=== PATIENT | female | born 1945 | race Caucasian/White ===

== ENCOUNTER → 2017-11-26 | Outpatient (CLI) | payer OTHER ==
[2017-11-26 10:12] LABS: Basophils # (auto) 0 uL; Basophils % (auto) 0.7 % (0.0-2.0); Eosinophils # (auto) 0.1 uL; Eosinophils % (auto) 1.1 % (0.0-7.0); Hematocrit 40.1 % (36.0-46.0); Hemoglobin 13.2 g/dL (12.2-16.2); Lymphocytes # (auto) 2.4 uL; Lymphocytes % (auto) 44.4 % (10.0-50.0); Mean Corpuscular Hemoglobin 31.3 pg (28.0-32.0); Mean Corpuscular Hgb Conc. 32.9 g/dL (32.0-36.0); Mean Corpuscular Volume 95.2 fL (80.0-100.0); Monocytes # (auto) 0.4 uL; Monocytes % (auto) 6.7 % (0.0-12.0); Neutrophils # (auto) 2.5 uL; Neutrophils % (auto) 47.1 % (37.0-80.0); Platelet Count (auto) 263 10^3/uL (140-450); Red Blood Cells 4.21 10^6/uL (4.0-5.20); Red Cell Distribution Width 13.9 % (11.8-14.3); White Blood Cell 5.4 10^3/uL (4.4-10.8)
[2017-11-26 10:41] LABS: Albumin 3.9 g/dL (3.4-5.0); BUN/Creatinine Ratio 13.6; Bilirubin, Total 0.4 mg/dL (0.2-1.0); CRP High Sensitivity 0.08 mg/dL (< 0.3); Calcium 10.3 mg/dL (8.5-10.1); Potassium 3.9 mmol/L (3.5-5.1); Total Protein 7.6 g/dL (6.4-8.2)
== END | disposition home or self-care (01) ==
LOC: LAB 09:49
PROVIDERS: ATTEND Internal Medicine
DX: I10 Essential (primary) hypertension (principal); M06.9 Rheumatoid arthritis, unspecified
CPT/HCPCS: 36415; 80053; 80061; 82306; 84439; 84443; 85025; 85652; 86141; 86200; 86431

== ENCOUNTER → 2018-03-12 | Outpatient (CLI) | payer OTHER ==
[2018-03-12 12:13] LABS: Basophils # (auto) 0 uL; Basophils % (auto) 0.8 % (0.0-2.0); Eosinophils # (auto) 0.1 uL; Eosinophils % (auto) 1.1 % (0.0-7.0); Hemoglobin 12.7 g/dL (12.2-16.2); Lymphocytes # (auto) 2.7 uL; Lymphocytes % (auto) 45.1 % (10.0-50.0); Mean Corpuscular Hemoglobin 31.8 pg (28.0-32.0); Mean Corpuscular Hgb Conc. 33.5 g/dL (32.0-36.0); Mean Corpuscular Volume 94.8 fL (80.0-100.0); Monocytes # (auto) 0.4 uL; Monocytes % (auto) 7.5 % (0.0-12.0); Neutrophils # (auto) 2.7 uL; Neutrophils % (auto) 45.5 % (37.0-80.0); Nucleated Red Blood Cells % 0.1 %; Platelet Count (auto) 267 10^3/uL (140-450); Red Blood Cells 4.01 10^6/uL (4.0-5.20); Red Cell Distribution Width 14.5 % (11.8-14.3); White Blood Cell 5.9 10^3/uL (4.4-10.8)
[2018-03-12 12:36] LABS: Albumin 4.1 g/dL (3.4-5.0); BUN/Creatinine Ratio 16.5; Bilirubin, Total 0.3 mg/dL (0.2-1.0); CRP High Sensitivity 0.09 mg/dL (< 0.3); Total Protein 7.5 g/dL (6.4-8.2)
== END | disposition home or self-care (01) ==
LOC: LAB 11:52
PROVIDERS: ATTEND Internal Medicine
DX: I10 Essential (primary) hypertension (principal); K21.9 Gastro-esophageal reflux disease without esophagitis; M06.9 Rheumatoid arthritis, unspecified
CPT/HCPCS: 36415; 80053; 83970; 85025; 85652; 86141

== ENCOUNTER → 2018-07-18 | Outpatient (CLI) | payer OTHER ==
[2018-07-18 09:29] LABS: Basophils # (auto) 0 uL; Basophils % (auto) 0.5 % (0.0-2.0); Eosinophils # (auto) 0.1 uL; Eosinophils % (auto) 1.3 % (0.0-7.0); Hemoglobin 13.1 g/dL (12.2-16.2); Lymphocytes # (auto) 2.2 uL; Lymphocytes % (auto) 42.1 % (10.0-50.0); Mean Corpuscular Hemoglobin 31.8 pg (28.0-32.0); Mean Corpuscular Hgb Conc. 32.8 g/dL (32.0-36.0); Mean Corpuscular Volume 96.8 fL (80.0-100.0); Monocytes # (auto) 0.3 uL; Neutrophils # (auto) 2.7 uL; Neutrophils % (auto) 51.1 % (37.0-80.0); Nucleated Red Blood Cells % 0.1 %; Platelet Count (auto) 234 10^3/uL (140-450); Red Blood Cells 4.14 10^6/uL (4.0-5.20); Red Cell Distribution Width 14.6 % (11.8-14.3); White Blood Cell 5.3 10^3/uL (4.4-10.8)
[2018-07-18 10:04] LABS: Calcium 9.9 mg/dL (8.5-10.1); Potassium 4.2 mmol/L (3.5-5.1)
[2018-07-18 10:08] LABS: BUN/Creatinine Ratio 18.2; Bilirubin, Total 0.5 mg/dL (0.2-1.0); CRP High Sensitivity 0.15 mg/dL (< 0.3); Total Protein 7.9 g/dL (6.4-8.2)
== END | disposition home or self-care (01) ==
LOC: LAB 09:13
PROVIDERS: ATTEND Internal Medicine
DX: E55.9 Vitamin D deficiency, unspecified (principal); M06.09 Rheumatoid arthritis without rheumatoid factor, multiple sites; I10 Essential (primary) hypertension
CPT/HCPCS: 36415; 80053; 82306; 85025; 86141

== ENCOUNTER → 2018-12-26 | Outpatient (CLI) | payer OTHER ==
[2018-12-26 10:31] LABS: Basophils # (auto) 0.1 uL; Eosinophils # (auto) 0.3 uL; Hematocrit 39.8 % (36.0-46.0); Hemoglobin 13.3 g/dL (12.2-16.2); Lymphocytes # (auto) 2.3 uL; Lymphocytes % (auto) 41.5 % (10.0-50.0); Mean Corpuscular Hemoglobin 31.7 pg (28.0-32.0); Mean Corpuscular Hgb Conc. 33.3 g/dL (32.0-36.0); Mean Corpuscular Volume 95.1 fL (80.0-100.0); Monocytes # (auto) 0.3 uL; Neutrophils # (auto) 2.5 uL; Neutrophils % (auto) 45.5 % (37.0-80.0); Nucleated Red Blood Cells % 0.1 %; Platelet Count (auto) 259 10^3/uL (140-450); Red Blood Cells 4.19 10^6/uL (4.0-5.20); Red Cell Distribution Width 14.7 % (11.8-14.3); White Blood Cell 5.5 10^3/uL (4.4-10.8)
[2018-12-26 10:55] LABS: Potassium 4.1 mmol/L (3.5-5.1)
[2018-12-26 11:05] LABS: Albumin 4.1 g/dL (3.4-5.0); BUN/Creatinine Ratio 15.9; Bilirubin, Total 0.4 mg/dL (0.2-1.0); CRP High Sensitivity 0.11 mg/dL (< 0.3); Calcium 10.7 mg/dL (8.5-10.1); Phosphorus 2.7 mg/dL (2.5-4.90); Total Protein 7.7 g/dL (6.4-8.2)
[2018-12-26 11:54] LABS: Urine Bacteria NONE SEEN /hpf (None Seen); Urine Blood Negative /uL (Negative); Urine Specific Gravity 1.016 (1.001-1.035); Urine WBC 1 /hpf (0 - 5)
== END | disposition home or self-care (01) ==
LOC: LAB 09:56
PROVIDERS: ATTEND Internal Medicine
DX: M06.9 Rheumatoid arthritis, unspecified (principal); E21.3 Hyperparathyroidism, unspecified
CPT/HCPCS: 36415; 80053; 80061; 81001; 82306; 83970; 84100; 84439; 84443; 85025; 85652; 86141; 86200; 86431

== ENCOUNTER → 2019-11-13 | Outpatient (CLI) | payer OTHER ==
[2019-11-13 10:09] LABS: Basophils # (auto) 0 uL; Basophils % (auto) 0.7 % (0.0-2.0); Eosinophils # (auto) 0.1 uL; Eosinophils % (auto) 1.9 % (0.0-7.0); Hematocrit 39.1 % (36.0-46.0); Lymphocytes # (auto) 2.3 uL; Mean Corpuscular Hemoglobin 31.8 pg (28.0-32.0); Mean Corpuscular Hgb Conc. 33.3 g/dL (32.0-36.0); Mean Corpuscular Volume 95.4 fL (80.0-100.0); Monocytes # (auto) 0.4 uL; Neutrophils # (auto) 2.5 uL; Neutrophils % (auto) 47.4 % (37.0-80.0); Platelet Count (auto) 251 10^3/uL (140-450); Red Blood Cells 4.09 10^6/uL (4.0-5.20); Red Cell Distribution Width 13.8 % (11.8-14.3); White Blood Cell 5.3 10^3/uL (4.4-10.8)
[2019-11-13 10:16] LABS: Urine Bacteria NONE SEEN /hpf (None Seen); Urine Blood Negative /uL (Negative); Urine Specific Gravity 1.016 (1.001-1.035); Urine WBC 3 /hpf (0 - 5)
[2019-11-13 10:41] LABS: Potassium 4.2 mmol/L (3.5-5.1)
[2019-11-13 10:50] LABS: Albumin 3.8 g/dL (3.4-5.0); BUN/Creatinine Ratio 18.8; Bilirubin, Total 0.5 mg/dL (0.2-1.0); Calcium 10.3 mg/dL (8.5-10.1); Total Protein 7.9 g/dL (6.4-8.2)
[2019-11-13 10:51] LABS: Free T4 (Free Thyroxine) 1.35 ng/dL (0.89-1.76)
[2019-11-13 10:52] LABS: Folate (Folic Acid) 14.04 ng/mL (5.38-24)
[2019-11-16 09:51] LABS: Hepatitis B Surface Antibody Positive
[2019-11-16 10:21] LABS: Hepatitis A Total Antibody Negative
[2019-11-16 11:42] LABS: Hepatitis C Antibody Negative (Negative)
[2019-11-16 11:43] LABS: Hepatitis B Core Total AB Negative; Hepatitis B Surface Antigen Negative (Negative)
== END | disposition home or self-care (01) ==
LOC: LAB 09:30
PROVIDERS: ATTEND Internal Medicine
DX: E21.3 Hyperparathyroidism, unspecified (principal); E78.5 Hyperlipidemia, unspecified; I10 Essential (primary) hypertension; K60.0 Acute anal fissure
CPT/HCPCS: 36415; 80053; 80061; 81001; 82607; 82746; 83036; 84439; 84443; 85025; 85652; 86431; 86704; 86706; 86708; 86803; 87340

== ENCOUNTER → 2020-04-28 | Outpatient (CLI) | payer OTHER ==
[2020-04-28 07:49] LABS: Basophils # (auto) 0 10 ^3/uL (0-0.2); Basophils % (auto) 0.6 % (0.0-2.0); Eosinophils # (auto) 0.1 10 ^3/uL (0-0.8); Eosinophils % (auto) 2.3 % (0.0-7.0); Hematocrit 39.6 % (36.0-46.0); Hemoglobin 12.7 g/dL (12.2-16.2); Lymphocytes # (auto) 2.6 10 ^3/uL (0.4-5.4); Lymphocytes % (auto) 43.7 % (10.0-50.0); Mean Corpuscular Hemoglobin 30.8 pg (28.0-32.0); Mean Corpuscular Hgb Conc. 32.1 g/dL (32.0-36.0); Monocytes # (auto) 0.4 10 ^3/uL (0-1.3); Monocytes % (auto) 7.2 % (0.0-12.0); Neutrophils # (auto) 2.7 10 ^3/uL (1.6-8.6); Neutrophils % (auto) 46.2 % (37.0-80.0); Platelet Count (auto) 248 10^3/uL (140-450); Red Blood Cells 4.12 10^6/uL (4.0-5.20); Red Cell Distribution Width 14.4 % (11.8-14.3); White Blood Cell 5.8 10^3/uL (4.4-10.8)
[2020-04-28 08:14] LABS: Calcium 10.4 mg/dL (8.5-10.1); Potassium 4.3 mmol/L (3.5-5.1)
[2020-04-28 08:17] LABS: BUN/Creatinine Ratio 21.2; Bilirubin, Total 0.3 mg/dL (0.2-1.0); CRP High Sensitivity 0.22 mg/dL (< 0.3); Total Protein 7.6 g/dL (6.4-8.2)
== END | disposition home or self-care (01) ==
LOC: LAB 07:34
PROVIDERS: ATTEND Internal Medicine Rheumatology
DX: M05.29 Rheumatoid vasculitis with rheumatoid arthritis of multiple sites (principal)
CPT/HCPCS: 36415; 80053; 85025; 85652; 86141; 86812

== ENCOUNTER → 2020-06-30 | Outpatient (CLI) | payer OTHER ==
[2020-06-30 10:26] LABS: Basophils # (auto) 0 10 ^3/uL (0-0.2); Basophils % (auto) 0.3 % (0.0-2.0); Eosinophils # (auto) 0.2 10 ^3/uL (0-0.8); Eosinophils % (auto) 3.4 % (0.0-7.0); Hemoglobin 12.2 g/dL (12.2-16.2); Lymphocytes # (auto) 2.2 10 ^3/uL (0.4-5.4); Lymphocytes % (auto) 40.9 % (10.0-50.0); Mean Corpuscular Hemoglobin 32.2 pg (28.0-32.0); Mean Corpuscular Volume 97.6 fL (80.0-100.0); Monocytes # (auto) 0.4 10 ^3/uL (0-1.3); Monocytes % (auto) 7.6 % (0.0-12.0); Neutrophils # (auto) 2.6 10 ^3/uL (1.6-8.6); Neutrophils % (auto) 47.8 % (37.0-80.0); Platelet Count (auto) 257 10^3/uL (140-450); Red Cell Distribution Width 14.9 % (11.8-14.3); White Blood Cell 5.4 10^3/uL (4.4-10.8)
[2020-06-30 11:38] LABS: Potassium 3.8 mmol/L (3.5-5.1)
[2020-06-30 11:45] LABS: Albumin 3.9 g/dL (3.4-5.0); Bilirubin, Total 0.4 mg/dL (0.2-1.0); CRP High Sensitivity 0.11 mg/dL (< 0.3); Calcium 10.3 mg/dL (8.5-10.1); Total Protein 7.4 g/dL (6.4-8.2)
== END | disposition home or self-care (01) ==
LOC: LAB 09:45
PROVIDERS: ATTEND Internal Medicine
DX: Z11.1 Encounter for screening for respiratory tuberculosis (principal); I10 Essential (primary) hypertension; M05.79 Rheumatoid arthritis with rheumatoid factor of multiple sites without organ or systems involvement; R94.5 Abnormal results of liver function studies
CPT/HCPCS: 36415; 80053; 82274; 83970; 85025; 85652; 86141

== ENCOUNTER → 2020-07-06 | Outpatient (CLI) | payer OTHER | END | disposition home or self-care (01) | LOC: LAB 12:30 | PROVIDERS: ATTEND Physician Assistant | DX: C44.519 Basal cell carcinoma of skin of other part of trunk (principal); L57.0 Actinic keratosis; L82.1 Other seborrheic keratosis ==

== ENCOUNTER → 2020-10-12 | Outpatient (CLI) | payer OTHER ==
[~2020-10-12] MED LIST: LEVO125T7 PO; LOSA-69 PO; METH2.5T PO; OMEP20TA PO; ROSU10TA16 PO; SULF500T8 PO
[2020-10-12 08:03] LABS: Basophils # (auto) 0 10 ^3/uL (0-0.2); Basophils % (auto) 0.5 % (0.0-2.0); Eosinophils # (auto) 0.1 10 ^3/uL (0-0.8); Eosinophils % (auto) 2.4 % (0.0-7.0); Hematocrit 31.2 % (36.0-46.0); Hemoglobin 10.5 g/dL (12.2-16.2); Lymphocytes # (auto) 1.8 10 ^3/uL (0.4-5.4); Lymphocytes % (auto) 35.8 % (10.0-50.0); Mean Corpuscular Hemoglobin 32.6 pg (28.0-32.0); Mean Corpuscular Hgb Conc. 33.8 g/dL (32.0-36.0); Mean Corpuscular Volume 96.4 fL (80.0-100.0); Monocytes # (auto) 0.5 10 ^3/uL (0-1.3); Monocytes % (auto) 9.7 % (0.0-12.0); Neutrophils # (auto) 2.5 10 ^3/uL (1.6-8.6); Neutrophils % (auto) 51.6 % (37.0-80.0); Nucleated Red Blood Cells % 0.1 %; Red Blood Cells 3.23 10^6/uL (4.0-5.20); Red Cell Distribution Width 15.9 % (11.8-14.3); White Blood Cell 4.9 10^3/uL (4.4-10.8)
[2020-10-12 08:47] LABS: Albumin 3.7 g/dL (3.4-5.0); Calcium 9.9 mg/dL (8.5-10.1); Potassium 3.9 mmol/L (3.5-5.1)
[2020-10-12 08:49] LABS: BUN/Creatinine Ratio 14.1
[2020-10-12 08:52] LABS: Bilirubin, Total 0.5 mg/dL (0.2-1.0); Total Protein 7.2 g/dL (6.4-8.2)
== END | disposition home or self-care (01) ==
LOC: LAB 07:30
PROVIDERS: ATTEND Internal Medicine Rheumatology
DX: M06.09 Rheumatoid arthritis without rheumatoid factor, multiple sites (principal)
CPT/HCPCS: 36415; 80053; 85025

== ENCOUNTER 2020-11-03 17:13 | Inpatient (IN) | payer OTHER ==
[~2020-11-03] VITALS: Ht 170.2 cm; Wt 90.4 kg
[2020-11-03] MEDS ORDERED: TEMAZEPAM 15 MG CAP PO PRN (17:45)
[2020-11-03] MEDS ORDERED: ONDANSETRON HCL 4 MG/2 ML VIAL IV PRN (17:45)
[2020-11-03] MEDS ORDERED: MORPHINE SULF INJ 2 MG/ML SYRINGE 1ML IV PRN ×2 (17:45)
[2020-11-03] MEDS ORDERED: NITROGLYCERIN 0.4 MG SL TAB SL PRN (17:45)
[2020-11-03] MEDS ORDERED: HYDROcodone-ACET 5/325MG TAB PO PRN (17:45)
[2020-11-03] MEDS ORDERED: DOCUSATE SOD 100 MG CAP PO PRN (17:45)
[2020-11-03] MEDS ORDERED: LOSA-69 PO (18:10)
[2020-11-03] MEDS ORDERED: OMEP20TA PO (18:10)
[2020-11-03] MEDS ORDERED: ROSU10TA16 PO (18:10)
[2020-11-03] MEDS ORDERED: METH2.5T PO (18:10)
[2020-11-03] MEDS ORDERED: SULF500T8 PO (18:10)
[2020-11-03] MEDS ORDERED: LEVO125T7 PO (18:10)
[2020-11-03 19:00] VITALS: BP 141/82
[2020-11-03] MEDS ORDERED: LORazepam 2MG/ML-1ML VIAL IV PRN (19:15)
[2020-11-03 19:20] LABS: Basophils # (auto) 0 10 ^3/uL (0-0.2); Basophils % (auto) 0.6 % (0.0-2.0); Eosinophils # (auto) 0.1 10 ^3/uL (0-0.8); Eosinophils % (auto) 1.5 % (0.0-7.0); Hematocrit 35.9 % (36.0-46.0); Hemoglobin 12.2 g/dL (12.2-16.2); Lymphocytes # (auto) 2.6 10 ^3/uL (0.4-5.4); Lymphocytes % (auto) 45.2 % (10.0-50.0); Mean Corpuscular Hemoglobin 32.9 pg (28.0-32.0); Mean Corpuscular Volume 96.8 fL (80.0-100.0); Monocytes # (auto) 0.5 10 ^3/uL (0-1.3); Monocytes % (auto) 9.1 % (0.0-12.0); Neutrophils # (auto) 2.5 10 ^3/uL (1.6-8.6); Neutrophils % (auto) 43.6 % (37.0-80.0); Nucleated Red Blood Cells % 0.1 %; Platelet Count (auto) 251 10^3/uL (140-450); Red Blood Cells 3.71 10^6/uL (4.0-5.20); Red Cell Distribution Width 15.9 % (11.8-14.3); White Blood Cell 5.8 10^3/uL (4.4-10.8)
[2020-11-03 19:32] LABS: Albumin 3.8 g/dL (3.4-5.0); Potassium 3.9 mmol/L (3.5-5.1)
[2020-11-03 19:40] LABS: BUN/Creatinine Ratio 14.9; Bilirubin, Total 0.4 mg/dL (0.2-1.0); Calcium 9.8 mg/dL (8.5-10.1); Phosphorus 2.5 mg/dL (2.5-4.90); Total Protein 7.6 g/dL (6.4-8.2)
[2020-11-03] MEDS: MECLIZINE HCL 25 MG TAB PO SCH (21:13)
[2020-11-03] MEDS: SODIUM CHLOR 0.9% PF (SALINE LOCK) 10ML VIAL/SYR IV SCH (21:23)
[2020-11-04] VITALS: BP 144/69
[2020-11-04 01:00] VITALS: BP 139/75
[2020-11-04 05:00] VITALS: BP 138/56
[2020-11-04] MEDS: MECLIZINE HCL 25 MG TAB PO SCH ×4 (06:00→21:27)
[2020-11-04] MEDS: SODIUM CHLOR 0.9% PF (SALINE LOCK) 10ML VIAL/SYR IV SCH ×3 (06:25→21:27)
[2020-11-04 08:00] VITALS: BP 134/73
[2020-11-04] MEDS ORDERED: ADENOSINE 80 MG in GIVE UN-DILUTED 0 ML IV STA (08:48)
[2020-11-04 16:00] VITALS: BP 143/66
[2020-11-04 17:09] LABS: Urine Bacteria NONE SEEN /hpf (None Seen); Urine Blood Negative /uL (Negative); Urine Specific Gravity 1.009 (1.001-1.035); Urine WBC 16 /hpf (0 - 5)
[2020-11-04 21:24] VITALS: BP 119/65
[2020-11-05 05:00] VITALS: BP 104/57
[2020-11-05] MEDS: SODIUM CHLOR 0.9% PF (SALINE LOCK) 10ML VIAL/SYR IV SCH ×3 (05:21→21:38)
[2020-11-05] MEDS: MECLIZINE HCL 25 MG TAB PO SCH ×3 (05:21→21:38)
[2020-11-05 08:00] VITALS: BP 118/74
[2020-11-05] MEDS ORDERED: ENOXAPARIN SOD 40 MG/0.4 ML SYRINGE SC ONE (11:00)
[2020-11-05] MEDS ORDERED: ASPirin 81 mg TAB PO ONE (11:00)
[2020-11-05 12:44] VITALS: BP 130/57
[2020-11-05 13:35] LABS: Anion Gap 7 (5-15); BUN/Creatinine Ratio 21.3; Blood Urea Nitrogen 20 mg/dL (7-18); Calcium 10.1 mg/dL (8.5-10.1); Carbon Dioxide 25 mmol/L (21-32); Chloride 108 mmol/L (98-107); GFR African American 75 mL/min; GFR Non-African American 62 mL/min; Glucose 85 mg/dL (74-106); Magnesium 2.1 mg/dL (1.6-2.6); Potassium 3.8 mmol/L (3.5-5.1); Sodium 140 mmol/L (136-145)
[2020-11-05 13:47] LABS: INR 1.01 (0.9-1.15)
[2020-11-05 14:07] LABS: Phosphorus 2.7 mg/dL (2.5-4.90)
[2020-11-05 16:30] VITALS: BP 118/67
[2020-11-05 21:03] VITALS: BP 115/53
[2020-11-05] MEDS: ATORVASTATIN 20 MG TAB PO SCH (21:38)
[2020-11-06 04:28] VITALS: BP 136/76
[2020-11-06] MEDS: MECLIZINE HCL 25 MG TAB PO SCH ×3 (05:53→22:46)
[2020-11-06] MEDS: SODIUM CHLOR 0.9% PF (SALINE LOCK) 10ML VIAL/SYR IV SCH ×3 (06:28→22:00)
[2020-11-06 08:00] VITALS: BP 108/66
[2020-11-06 09:00] VITALS: BP 108/66
[2020-11-06] MEDS: ASPirin 81 mg TAB PO SCH (09:25)
[2020-11-06] MEDS: ACETAMINOPHEN 325 MG TAB PO PRN ×3 (09:28→22:46)
[2020-11-06] MEDS: ENOXAPARIN SOD 40 MG/0.4 ML SYRINGE SC SCH (09:28)
[2020-11-06 13:00] VITALS: BP 102/50
[2020-11-06 17:00] VITALS: BP 125/61
[2020-11-06 22:00] VITALS: BP 129/62
[2020-11-06] MEDS: ATORVASTATIN 20 MG TAB PO SCH (22:46)
[2020-11-07 05:00] VITALS: BP 111/52
[2020-11-07] MEDS: MECLIZINE HCL 25 MG TAB PO SCH ×2 (06:00→14:00)
[2020-11-07] MEDS: SODIUM CHLOR 0.9% PF (SALINE LOCK) 10ML VIAL/SYR IV SCH ×2 (06:00→14:00)
[2020-11-07 06:57] LABS: Basophils # (auto) 0 10 ^3/uL (0-0.2); Basophils % (auto) 0.3 % (0.0-2.0); Eosinophils # (auto) 0.1 10 ^3/uL (0-0.8); Eosinophils % (auto) 1.5 % (0.0-7.0); Hemoglobin 11.1 g/dL (12.2-16.2); Lymphocytes # (auto) 2.5 10 ^3/uL (0.4-5.4); Lymphocytes % (auto) 29.8 % (10.0-50.0); Mean Corpuscular Hemoglobin 32.7 pg (28.0-32.0); Mean Corpuscular Hgb Conc. 33.8 g/dL (32.0-36.0); Mean Corpuscular Volume 96.8 fL (80.0-100.0); Monocytes # (auto) 0.9 10 ^3/uL (0-1.3); Monocytes % (auto) 10.3 % (0.0-12.0); Neutrophils # (auto) 4.9 10 ^3/uL (1.6-8.6); Neutrophils % (auto) 58.1 % (37.0-80.0); Platelet Count (auto) 213 10^3/uL (140-450); Red Blood Cells 3.41 10^6/uL (4.0-5.20); Red Cell Distribution Width 15.3 % (11.8-14.3); White Blood Cell 8.5 10^3/uL (4.4-10.8)
[2020-11-07] MEDS ORDERED: MIDAZOLAM HCL 1MG/1ML-2 ML VIAL ONE (08:31)
[2020-11-07] MEDS ORDERED: VERAPAMIL 2.5MG/ML INJ 2ML VIAL IV ONE (08:31)
[2020-11-07] MEDS ORDERED: ANGIOMAX 250 MG VIAL IV ONE (08:31)
[2020-11-07] MEDS ORDERED: fentaNYL CITRATE 100 MCG/2 ML VL ONE (08:31)
[2020-11-07] MEDS ORDERED: HEPARIN SODIUM (PORCINE) 5000 UNITS/ML 1ML VIAL ONE (08:31)
[2020-11-07] MEDS ORDERED: LIDOCAINE 2%HCL (LOCAL ANESTH.) INJ 20ML MDV ONE (08:32)
[2020-11-07] MEDS ORDERED: SODIUM CHL 0.9% 0 ML ONE (08:32)
[2020-11-07] MEDS ORDERED: IODIXANOL 320MG/ML 100ML BTL IV ONE (08:32)
[2020-11-07 09:00] VITALS: BP 118/62
[2020-11-07] MEDS: ENOXAPARIN SOD 40 MG/0.4 ML SYRINGE SC SCH (10:00)
[2020-11-07] MEDS: ASPirin 81 mg TAB PO SCH (10:00)
[2020-11-07 12:50] VITALS: BP 128/74
== END 2020-11-07 16:00 | disposition home or self-care (01) | DRG 287 ==
LOC: TELE-EAST 17:13
PROVIDERS: ADMIT Internal Medicine; ATTEND Internal Medicine
PROC: 4A023N8 Measurement of Cardiac Sampling and Pressure, Bilateral, Percutaneous Approach (ICD-10-PCS; principal; 2020-11-07)
PROC: B2111ZZ Fluoroscopy of Multiple Coronary Arteries using Low Osmolar Contrast (ICD-10-PCS; 2020-11-07)
DX: I25.10 Atherosclerotic heart disease of native coronary artery without angina pectoris (principal); E03.9 Hypothyroidism, unspecified; M06.9 Rheumatoid arthritis, unspecified; R26.9 Unspecified abnormalities of gait and mobility; Z20.822 Contact with and (suspected) exposure to COVID-19; R55 Syncope and collapse; Z96.651 Presence of right artificial knee joint; I10 Essential (primary) hypertension; E78.5 Hyperlipidemia, unspecified
CPT/HCPCS: 36415; 70450; 70551; 71045; 78452; 80048; 80053; 81001; 83735; 83880; 84100; 84439; 84443; 84484; 85025; 85610; 86850; 86900; 86901; 87426; 93017; 93306; 93886; 99152; 99153; C1751; G0378; J0153; J2250; Q9967

== ENCOUNTER → 2020-12-02 | Outpatient (CLI) | payer OTHER ==
[2020-12-02 10:35] LABS: Potassium 4.3 mmol/L (3.5-5.1)
[2020-12-02 11:01] LABS: BUN/Creatinine Ratio 26.1; Bilirubin, Total 0.4 mg/dL (0.2-1.0); Calcium 10.6 mg/dL (8.5-10.1); Total Protein 7.8 g/dL (6.4-8.2)
== END | disposition home or self-care (01) ==
LOC: LAB 08:17
PROVIDERS: ATTEND Internal Medicine
DX: E78.5 Hyperlipidemia, unspecified (principal)
CPT/HCPCS: 36415; 80053; 80061; 83036

== ENCOUNTER → 2021-03-01 | Outpatient (CLI) | payer OTHER ==
[2021-03-01 10:52] LABS: Basophils # (auto) 0.1 10 ^3/uL (0-0.2); Basophils % (auto) 0.9 % (0.0-2.0); Eosinophils # (auto) 0.1 10 ^3/uL (0-0.8); Eosinophils % (auto) 2.4 % (0.0-7.0); Hematocrit 35.8 % (36.0-46.0); Hemoglobin 12.1 g/dL (12.2-16.2); Lymphocytes # (auto) 2.8 10 ^3/uL (0.4-5.4); Lymphocytes % (auto) 45.3 % (10.0-50.0); Mean Corpuscular Hemoglobin 31.9 pg (28.0-32.0); Mean Corpuscular Hgb Conc. 33.9 g/dL (32.0-36.0); Mean Corpuscular Volume 94.1 fL (80.0-100.0); Monocytes # (auto) 0.4 10 ^3/uL (0-1.3); Neutrophils # (auto) 2.8 10 ^3/uL (1.6-8.6); Neutrophils % (auto) 44.4 % (37.0-80.0); Nucleated Red Blood Cells % 0.2 %; Platelet Count (auto) 267 10^3/uL (140-450); Red Blood Cells 3.81 10^6/uL (4.0-5.20); Red Cell Distribution Width 14.5 % (11.8-14.3); White Blood Cell 6.2 10^3/uL (4.4-10.8)
[2021-03-01 11:46] LABS: Potassium 4.1 mmol/L (3.5-5.1)
[2021-03-01 11:57] LABS: Albumin 3.9 g/dL (3.4-5.0); BUN/Creatinine Ratio 17.6; Bilirubin, Total 0.5 mg/dL (0.2-1.0); CRP High Sensitivity 0.09 mg/dL (< 0.3); Calcium 10.4 mg/dL (8.5-10.1); Total Protein 7.6 g/dL (6.4-8.2)
== END | disposition home or self-care (01) ==
LOC: LAB 10:24
PROVIDERS: ATTEND Internal Medicine Rheumatology
DX: M06.09 Rheumatoid arthritis without rheumatoid factor, multiple sites (principal)
CPT/HCPCS: 36415; 80053; 85025; 85652; 86141

== ENCOUNTER → 2021-04-20 | Outpatient (CLI) | payer OTHER ==
[2021-04-20 09:54] LABS: Albumin 3.8 g/dL (3.4-5.0); Calcium 10.2 mg/dL (8.5-10.1)
[2021-04-20 09:57] LABS: BUN/Creatinine Ratio 19.6; Bilirubin, Total 0.4 mg/dL (0.2-1.0); Total Protein 7.7 g/dL (6.4-8.2)
== END | disposition home or self-care (01) ==
LOC: LAB 09:11
PROVIDERS: ATTEND Internal Medicine
DX: E78.5 Hyperlipidemia, unspecified (principal)
CPT/HCPCS: 36415; 80053

== ENCOUNTER → 2021-10-26 | Outpatient (CLI) | payer OTHER ==
[2021-10-26 09:29] LABS: Albumin 3.8 g/dL (3.4-5.0); Calcium 10.4 mg/dL (8.5-10.1); Potassium 4.4 mmol/L (3.5-5.1)
[2021-10-26 09:34] LABS: BUN/Creatinine Ratio 23.3; Basophils # (auto) 0 10 ^3/uL (0-0.2); Basophils % (auto) 0.5 % (0.0-2.0); Bilirubin, Total 0.4 mg/dL (0.2-1.0); CRP High Sensitivity 0.19 mg/dL (< 0.3); Eosinophils # (auto) 0.1 10 ^3/uL (0-0.8); Eosinophils % (auto) 1.7 % (0.0-7.0); Hematocrit 37.7 % (36.0-46.0); Hemoglobin 12.3 g/dL (12.2-16.2); Lymphocytes # (auto) 2.7 10 ^3/uL (0.4-5.4); Lymphocytes % (auto) 41.7 % (10.0-50.0); Mean Corpuscular Hemoglobin 30.8 pg (28.0-32.0); Mean Corpuscular Hgb Conc. 32.7 g/dL (32.0-36.0); Mean Corpuscular Volume 94.3 fL (80.0-100.0); Monocytes # (auto) 0.5 10 ^3/uL (0-1.3); Monocytes % (auto) 7.6 % (0.0-12.0); Neutrophils # (auto) 3.1 10 ^3/uL (1.6-8.6); Neutrophils % (auto) 48.5 % (37.0-80.0); Nucleated Red Blood Cells % 0.1 %; Red Cell Distribution Width 14.7 % (11.8-14.3); Total Protein 7.6 g/dL (6.4-8.2); White Blood Cell 6.4 10^3/uL (4.4-10.8)
== END | disposition home or self-care (01) ==
LOC: LAB 08:24
PROVIDERS: ATTEND Student in an Organized Health Care Education/Training Program
DX: M05.79 Rheumatoid arthritis with rheumatoid factor of multiple sites without organ or systems involvement (principal)
CPT/HCPCS: 36415; 80053; 80061; 82274; 83036; 85025; 86141

== ENCOUNTER → 2021-11-15 | Outpatient (CLI) | payer OTHER | END | disposition home or self-care (01) | LOC: XY 11:04 | PROVIDERS: ATTEND Student in an Organized Health Care Education/Training Program | DX: I73.9 Peripheral vascular disease, unspecified (principal) | CPT/HCPCS: 93925 ==

== ENCOUNTER → 2021-11-22 | Day surgery (SDC) | payer OTHER ==
[2021-11-20 12:31] LABS: INR 1.01 (0.9-1.15); Partial Thromboplastin Time 28.2 sec (23.6-33.0)
[2021-11-20 13:14] LABS: Basophils # (auto) 0 10 ^3/uL (0-0.2); Basophils % (auto) 0.7 % (0.0-2.0); Eosinophils # (auto) 0.1 10 ^3/uL (0-0.8); Eosinophils % (auto) 2.3 % (0.0-7.0); Hematocrit 34.3 % (36.0-46.0); Hemoglobin 11.4 g/dL (12.2-16.2); Lymphocytes # (auto) 2.8 10 ^3/uL (0.4-5.4); Lymphocytes % (auto) 45.2 % (10.0-50.0); Mean Corpuscular Hemoglobin 31.4 pg (28.0-32.0); Mean Corpuscular Hgb Conc. 33.2 g/dL (32.0-36.0); Mean Corpuscular Volume 94.6 fL (80.0-100.0); Monocytes # (auto) 0.4 10 ^3/uL (0-1.3); Monocytes % (auto) 6.9 % (0.0-12.0); Neutrophils # (auto) 2.8 10 ^3/uL (1.6-8.6); Neutrophils % (auto) 44.9 % (37.0-80.0); Red Blood Cells 3.63 10^6/uL (4.0-5.20); Red Cell Distribution Width 14.7 % (11.8-14.3); White Blood Cell 6.2 10^3/uL (4.4-10.8)
[2021-11-20 13:20] LABS: Albumin 3.6 g/dL (3.4-5.0); Calcium 10.2 mg/dL (8.5-10.1)
[2021-11-20 13:22] LABS: Bilirubin, Total 0.5 mg/dL (0.2-1.0); Total Protein 7.1 g/dL (6.4-8.2)
[~2021-11-22] VITALS: Ht 170.2 cm; Wt 95.3 kg
[~2021-11-22] MED LIST changes: +LIDOCAINE VISCOUS 2% 15ML UD ONE; +SODIUM CHLORIDE LOCK 10 ML ONE; +diphenhdrAMINE HCL 50 MG/1 ML VL ONE
[2021-11-22] MEDS: MIDAZOLAM HCL 5 MG/ML-1ML VIAL ONE ×2 (13:12→13:15)
[2021-11-22] MEDS: fentaNYL CITRATE 100 MCG/2 ML VL ONE ×3 (13:12→13:18)
[2021-11-22 14:15] VITALS: BP 133/68
== END | disposition home or self-care (01) ==
LOC: GI 11:36
PROVIDERS: ATTEND Internal Medicine Gastroenterology
DX: R10.13 Epigastric pain (principal); K29.50 Unspecified chronic gastritis without bleeding; K21.00 Gastro-esophageal reflux disease with esophagitis, without bleeding; K22.10 Ulcer of esophagus without bleeding; K31.89 Other diseases of stomach and duodenum; K44.9 Diaphragmatic hernia without obstruction or gangrene; E03.9 Hypothyroidism, unspecified; E78.5 Hyperlipidemia, unspecified; M06.9 Rheumatoid arthritis, unspecified; Z96.652 Presence of left artificial knee joint; Z20.822 Contact with and (suspected) exposure to COVID-19
CPT/HCPCS: 36415; 43239; 80053; 85025; 85610; 85730; 88305; 88312; 88342; J1200; J2250; J3010; J7030; U0003; 99152

== ENCOUNTER 2022-02-21 13:45 | Inpatient (IN) | payer OTHER ==
[~2022-02-21] VITALS: Ht 170.2 cm; Wt 94.0 kg
[~2022-02-21 13:45] MED LIST changes: -LIDOCAINE VISCOUS 2% 15ML UD ONE; -SODIUM CHLORIDE LOCK 10 ML ONE; -diphenhdrAMINE HCL 50 MG/1 ML VL ONE
[2022-02-21 15:41] LABS: Hematocrit 36.9 % (36.0-46.0); Hemoglobin 12.4 g/dL (12.2-16.2); Mean Corpuscular Hemoglobin 31.1 pg (28.0-32.0); Mean Corpuscular Hgb Conc. 33.6 g/dL (32.0-36.0); Mean Corpuscular Volume 92.4 fL (80.0-100.0); Red Blood Cells 3.99 10^6/uL (4.0-5.20); Red Cell Distribution Width 14.9 % (11.8-14.3); White Blood Cell 14.1 10^3/uL (4.4-10.8)
[2022-02-21 15:45] LABS: Band Neutrophils % (manual) 0; Basophils % (manual) 0 (0.0-2.0); Blast Cells 0; Promyelocytes % 0; Reactive Lymphocytes 0
[2022-02-21 15:55] LABS: Albumin 2.5 g/dL (3.4-5.0); Calcium 10.5 mg/dL (8.5-10.1); Potassium 3.5 mmol/L (3.5-5.1)
[2022-02-21 15:58] LABS: BUN/Creatinine Ratio 30.3; Bilirubin, Total 0.8 mg/dL (0.2-1.0); Eosinophils % (manual) 1 (0-7); Lymphocytes % (manual) 24 (10.0-50.0); Metamyelocytes % 1; Monocytes % (manual) 7 (0-12); Myelocytes % 1; Total Protein 7.7 g/dL (6.4-8.2)
[2022-02-21] MEDS ORDERED: METOCLOPRAMIDE HCL 5MG/ml INJ 2ml VIAL IV ONE (18:30)
[2022-02-21] MEDS ORDERED: SODIUM CHLORIDE 0.9% 1,000 ML IVB ONE (18:30)
[2022-02-21] MEDS ORDERED: KETOROLAC TROMETH 30 MG/ML 1ML VIAL IV ONE (18:30)
[2022-02-21 19:38] LABS: Magnesium 2.3 mg/dL (1.6-2.6)
[2022-02-21] MEDS ORDERED: FAMOTIDINE (10MG/ML) 2ML VL IV ONE (23:00)
[2022-02-21] MEDS ORDERED: cefTRIAXone 1GM/50ML D5W 50 ML IV ONE (23:00)
[2022-02-21] MEDS ORDERED: ALUM & MAG HYDROX-SIMETH LIQ(MAALOX) 30 ML PO ONE (23:00)
[2022-02-21] MEDS ORDERED: LIDOCAINE VISCOUS 2% 15ML UD PO ONE (23:00)
[2022-02-22] MEDS ORDERED: MORPHINE SULFATE INJ 2 MG/ml SYRG IV PRN (01:15)
[2022-02-22] MEDS ORDERED: SODIUM CHLORIDE 0.9% 1,000 ML IV SCH (01:15)
[2022-02-22] MEDS ORDERED: PANTOPRAZOLE 40 MG/10 ML VIAL INJ IV ONE (01:15)
[2022-02-22] MEDS ORDERED: ONDANSETRON HCL 4 MG/2 ML VIAL IV PRN (01:15)
[2022-02-22 01:56] LABS: Urine Bacteria MANY /hpf (None Seen); Urine Blood TRACE /uL (Negative); Urine Hyaline Cast FEW /lpf (0 - 2); Urine Mucus FEW (None Seen); Urine Specific Gravity 1.014 (1.001-1.035); Urine WBC 83 /hpf (0 - 5); Urine WBC Clumps PRESENT /hpf (None Seen)
[2022-02-22 05:24] VITALS: BP 98/66
[2022-02-22 06:44] VITALS: BP 98/66
[2022-02-22 09:00] VITALS: BP 126/60
[2022-02-22] MEDS: PANTOPRAZOLE 40 MG/10 ML VIAL INJ IV SCH (11:10)
[2022-02-22 13:00] VITALS: BP 123/65
[2022-02-22] MEDS ORDERED: METHOTREXATE 2.5 MG TAB PO SCH (14:15)
[2022-02-22 14:51] LABS: INR 1.13 (0.9-1.15); Partial Thromboplastin Time 26.9 sec (23.6-33.0)
[2022-02-22 14:54] LABS: Albumin 2.3 g/dL (3.4-5.0); Calcium 9.8 mg/dL (8.5-10.1); Magnesium 2.6 mg/dL (1.6-2.6); Potassium 3.3 mmol/L (3.5-5.1)
[2022-02-22 14:58] LABS: BUN/Creatinine Ratio 34.1; Bilirubin, Direct 0.2 mg/dL (0-0.2); Bilirubin, Total 0.4 mg/dL (0.2-1.0); Total Protein 6.8 g/dL (6.4-8.2)
[2022-02-22 17:00] VITALS: BP 146/56
[2022-02-22] MEDS ORDERED: POTASSIUM CHLORIDE 60 MEQ, LIDOCAINE 1% (LOCAL ANESTH.) 6 ML in SODIUM CHL 0.9% 500 ML IV ONE (17:00)
[2022-02-22] MEDS ORDERED: LEVOTHYROXINE SODIUM 100 MCG/5 ML INJ IV ONE (17:00)
[2022-02-22] MEDS: LACTATED RINGER'S 1,000 ML IV SCH (17:18)
[2022-02-22] MEDS ORDERED: cefTRIAXone 1GM/50ML D5W 50 ML IV SCH (21:00)
[2022-02-22 22:00] VITALS: BP 102/57
[2022-02-22] MEDS ORDERED: ATORVASTATIN 20 MG TAB PO SCH (22:00)
[2022-02-22] MEDS: sulfaSALAzine 500 MG TAB PO SCH (22:39)
[2022-02-22] MEDS: PIPERACILLIN-TAZOB 2.25GM 50 ML IV SCH (23:00)
[2022-02-23 05:00] VITALS: BP 114/51
[2022-02-23] MEDS: PIPERACILLIN-TAZOB 2.25GM 50 ML IV SCH ×3 (05:42→22:18)
[2022-02-23 06:16] LABS: Hematocrit 32.9 % (36.0-46.0); Hemoglobin 11.1 g/dL (12.2-16.2); Mean Corpuscular Hemoglobin 31.6 pg (28.0-32.0); Mean Corpuscular Hgb Conc. 33.9 g/dL (32.0-36.0); Mean Corpuscular Volume 93.2 fL (80.0-100.0); Red Blood Cells 3.53 10^6/uL (4.0-5.20); Red Cell Distribution Width 15.4 % (11.8-14.3); White Blood Cell 8.8 10^3/uL (4.4-10.8)
[2022-02-23 06:25] LABS: Basophils % (manual) 0 (0.0-2.0); Blast Cells 0; Eosinophils % (manual) 0 (0-7); Myelocytes % 0; Promyelocytes % 0; Reactive Lymphocytes 0
[2022-02-23 06:29] LABS: Albumin 2.4 g/dL (3.4-5.0); BUN/Creatinine Ratio 28.2; Potassium 3.7 mmol/L (3.5-5.1)
[2022-02-23 06:31] LABS: Bilirubin, Total 0.4 mg/dL (0.2-1.0)
[2022-02-23] MEDS: LEVOTHYROXINE SODIUM 50 MCG TAB PO SCH (06:45)
[2022-02-23] MEDS ORDERED: SUCCINYLCHOLINE CHLORIDE 20 MG/ML 10ML VIAL IV ONE (06:57)
[2022-02-23] MEDS ORDERED: ROCURONIUM 10MG/ML 10ML VIAL IV ONE (06:57)
[2022-02-23 07:13] LABS: INR 1.13 (0.9-1.15); Partial Thromboplastin Time 27.1 sec (23.6-33.0)
[2022-02-23] MEDS ORDERED: MORPHINE SULFATE 4 MG/ML SYR/VIAL IV PRN (07:15)
[2022-02-23] MEDS ORDERED: HYDROmorphone HCL 2 MG/ML VL/or syr IV PRN (07:15)
[2022-02-23] MEDS ORDERED: METOCLOPRAMIDE HCL 5MG/ml INJ 2ml VIAL IV PRN (07:15)
[2022-02-23] MEDS ORDERED: BUPIVACAINE HCL 50 ML ONE (07:17)
[2022-02-23] MEDS ORDERED: SODIUM CHLORIDE LOCK 10 ML ONE (07:27)
[2022-02-23] MEDS ORDERED: GLYCOPYRROLATE 0.2 MG/ML 1ML VIAL ONE (07:27)
[2022-02-23] MEDS ORDERED: NEOSTIGMINE 1 MG/ML INJ (10mg/10ML VIAL) ONE (07:27)
[2022-02-23] MEDS ORDERED: ONDANSETRON HCL 4 MG/2 ML VIAL ONE (07:27)
[2022-02-23] MEDS ORDERED: DexAMETHasone SOD PHOS 10MG/1ML VIAL INJ ONE (07:27)
[2022-02-23] MEDS ORDERED: MIDAZOLAM HCL 2MG/2ML 2ml VIAL (1mg/ml) ONE (07:27)
[2022-02-23] MEDS ORDERED: fentaNYL CITRATE 100 MCG/2 ML VL ONE (07:27)
[2022-02-23] MEDS ORDERED: PROPOFOL 10 MG/ML 20 ML IV ONE (07:27)
[2022-02-23 08:47] LABS: Band Neutrophils % (manual) 25; Lymphocytes % (manual) 20 (10.0-50.0); Metamyelocytes % 1; Monocytes % (manual) 5 (0-12)
[2022-02-23] MEDS: sulfaSALAzine 500 MG TAB PO SCH ×2 (11:01→22:18)
[2022-02-23] MEDS: LOSARTAN POTASSIUM 50 MG TAB PO SCH (11:01)
[2022-02-23] MEDS: LEVOTHYROXINE SODIUM 100 MCG/5 ML INJ IV SCH (11:01)
[2022-02-23] MEDS: PANTOPRAZOLE 40 MG/10 ML VIAL INJ IV SCH (11:02)
[2022-02-23] MEDS: D5W/SOD CHL 0.45%/KCL 20MEQ 1,000 ML IV SCH ×2 (11:02→18:58)
[2022-02-23 13:00] VITALS: BP 107/54
[2022-02-23] MEDS: LACTATED RINGER'S 1,000 ML IV SCH (13:00)
[2022-02-23 16:57] VITALS: BP 120/60
[2022-02-23 22:00] VITALS: BP 99/52
[2022-02-24] MEDS: D5W/SOD CHL 0.45%/KCL 20MEQ 1,000 ML IV SCH ×3 (01:40→18:20)
[2022-02-24 05:00] VITALS: BP 102/48
[2022-02-24] MEDS: LACTATED RINGER'S 1,000 ML IV SCH (05:54)
[2022-02-24] MEDS: PIPERACILLIN-TAZOB 2.25GM 50 ML IV SCH ×3 (06:05→21:55)
[2022-02-24] MEDS: LEVOTHYROXINE SODIUM 50 MCG TAB PO SCH (07:00)
[2022-02-24 07:02] LABS: Basophils # (auto) 0.1 10 ^3/uL (0-0.2); Basophils % (auto) 0.6 % (0.0-2.0); Eosinophils # (auto) 0 10 ^3/uL (0-0.8); Eosinophils % (auto) 0.3 % (0.0-7.0); Hematocrit 30.3 % (36.0-46.0); Hemoglobin 10.3 g/dL (12.2-16.2); Lymphocytes # (auto) 2.6 10 ^3/uL (0.4-5.4); Lymphocytes % (auto) 21.7 % (10.0-50.0); Mean Corpuscular Hemoglobin 31.2 pg (28.0-32.0); Mean Corpuscular Hgb Conc. 33.8 g/dL (32.0-36.0); Mean Corpuscular Volume 92.4 fL (80.0-100.0); Monocytes # (auto) 0.6 10 ^3/uL (0-1.3); Monocytes % (auto) 5.2 % (0.0-12.0); Neutrophils # (auto) 8.5 10 ^3/uL (1.6-8.6); Neutrophils % (auto) 72.2 % (37.0-80.0); Nucleated Red Blood Cells % 0.1 %; Red Blood Cells 3.28 10^6/uL (4.0-5.20); Red Cell Distribution Width 15.1 % (11.8-14.3); White Blood Cell 11.8 10^3/uL (4.4-10.8)
[2022-02-24 07:16] LABS: Albumin 2.4 g/dL (3.4-5.0); BUN/Creatinine Ratio 15.4; Potassium 4.2 mmol/L (3.5-5.1)
[2022-02-24 07:25] LABS: Bilirubin, Total 0.3 mg/dL (0.2-1.0); Total Protein 6.4 g/dL (6.4-8.2)
[2022-02-24 09:00] VITALS: BP 95/50
[2022-02-24] MEDS: LOSARTAN POTASSIUM 50 MG TAB PO SCH (10:00)
[2022-02-24] MEDS: PANTOPRAZOLE 40 MG/10 ML VIAL INJ IV SCH (10:36)
[2022-02-24] MEDS: LEVOTHYROXINE SODIUM 100 MCG/5 ML INJ IV SCH (10:36)
[2022-02-24] MEDS: sulfaSALAzine 500 MG TAB PO SCH ×2 (10:37→21:55)
[2022-02-24 13:00] VITALS: BP 108/57
[2022-02-24 22:00] VITALS: BP 110/59
[2022-02-25] MEDS: D5W/SOD CHL 0.45%/KCL 20MEQ 1,000 ML IV SCH ×2 (02:40→11:00)
[2022-02-25 05:00] VITALS: BP 112/61
[2022-02-25] MEDS: PIPERACILLIN-TAZOB 2.25GM 50 ML IV SCH ×2 (05:58→14:00)
[2022-02-25] MEDS: LEVOTHYROXINE SODIUM 50 MCG TAB PO SCH (06:38)
[2022-02-25 09:00] VITALS: BP 97/52
[2022-02-25] MEDS: LACTATED RINGER'S 1,000 ML IV SCH (09:52)
[2022-02-25] MEDS: LOSARTAN POTASSIUM 50 MG TAB PO SCH (10:00)
[2022-02-25] MEDS: PANTOPRAZOLE 40 MG/10 ML VIAL INJ IV SCH (11:12)
[2022-02-25] MEDS: LEVOTHYROXINE SODIUM 100 MCG/5 ML INJ IV SCH (11:13)
[2022-02-25] MEDS: sulfaSALAzine 500 MG TAB PO SCH (11:13)
[2022-02-25 13:00] VITALS: BP 116/56
[2022-02-25 14:31] VITALS: BP 96/65
== END 2022-02-25 15:20 | disposition home or self-care (01) | DRG 417 ==
LOC: ER 13:45 → OVERFLOW 02-22 01:10 → WEST WING 02-22 04:50
PROVIDERS: ADMIT Nurse Practitioner; ATTEND Internal Medicine
PROC: 0FT44ZZ Resection of Gallbladder, Percutaneous Endoscopic Approach (ICD-10-PCS; principal; 2022-02-23 07:41)
DX: K80.00 Calculus of gallbladder with acute cholecystitis without obstruction (principal); N17.0 Acute kidney failure with tubular necrosis; N39.0 Urinary tract infection, site not specified; E87.6 Hypokalemia; E03.9 Hypothyroidism, unspecified; Z68.32 Body mass index [BMI] 32.0-32.9, adult; E66.01 Morbid (severe) obesity due to excess calories; E78.5 Hyperlipidemia, unspecified; G89.29 Other chronic pain; Z20.822 Contact with and (suspected) exposure to COVID-19; I12.9 Hypertensive chronic kidney disease with stage 1 through stage 4 chronic kidney disease, or unspecified chronic kidney disease; R79.89 Other specified abnormal findings of blood chemistry; K66.0 Peritoneal adhesions (postprocedural) (postinfection); M06.9 Rheumatoid arthritis, unspecified; N18.30 Chronic kidney disease, stage 3 unspecified; K21.9 Gastro-esophageal reflux disease without esophagitis; M54.50 Low back pain, unspecified; R74.01 Elevation of levels of liver transaminase levels; R74.8 Abnormal levels of other serum enzymes; Z71.3 Dietary counseling and surveillance
CPT/HCPCS: 36415; 71046; 78226; 80053; 81001; 82248; 83690; 83735; 84439; 84443; 84484; 85007; 85025; 85027; 85610; 85730; 93005; 93306; 96365; 96375; C9113; G0378; J0330; J0696; J1100; J1885; J2001; J2250; J2405; J2543; J2704; J3490

== ENCOUNTER → 2022-03-21 | Outpatient (CLI) | payer OTHER ==
[2022-03-21 10:06] LABS: Basophils # (auto) 0 10 ^3/uL (0-0.2); Basophils % (auto) 0.4 % (0.0-2.0); Eosinophils # (auto) 0.1 10 ^3/uL (0-0.8); Eosinophils % (auto) 1.1 % (0.0-7.0); Hematocrit 31.5 % (36.0-46.0); Hemoglobin 10.5 g/dL (12.2-16.2); Lymphocytes # (auto) 3.3 10 ^3/uL (0.4-5.4); Mean Corpuscular Hemoglobin 31.8 pg (28.0-32.0); Mean Corpuscular Hgb Conc. 33.3 g/dL (32.0-36.0); Mean Corpuscular Volume 95.4 fL (80.0-100.0); Monocytes # (auto) 0.5 10 ^3/uL (0-1.3); Monocytes % (auto) 7.9 % (0.0-12.0); Neutrophils % (auto) 43.6 % (37.0-80.0); Red Cell Distribution Width 16.5 % (11.8-14.3)
[2022-03-21 10:31] LABS: Albumin 3.5 g/dL (3.4-5.0); Calcium 9.4 mg/dL (8.5-10.1); Potassium 3.5 mmol/L (3.5-5.1)
[2022-03-21 10:36] LABS: BUN/Creatinine Ratio 12.5; Bilirubin, Total 0.4 mg/dL (0.2-1.0); CRP High Sensitivity 0.18 mg/dL (< 0.3); Total Protein 7.4 g/dL (6.4-8.2)
== END | disposition home or self-care (01) ==
LOC: LAB 09:53
PROVIDERS: ATTEND Internal Medicine Rheumatology
DX: Z11.1 Encounter for screening for respiratory tuberculosis (principal); M05.79 Rheumatoid arthritis with rheumatoid factor of multiple sites without organ or systems involvement
CPT/HCPCS: 36415; 80053; 85025; 86141

== ENCOUNTER → 2022-05-18 | Outpatient (CLI) | payer OTHER ==
[2022-05-18 07:48] LABS: Basophils # (auto) 0 10 ^3/uL (0-0.2); Basophils % (auto) 0.6 % (0.0-2.0); Eosinophils # (auto) 0.1 10 ^3/uL (0-0.8); Hematocrit 33.8 % (36.0-46.0); Hemoglobin 10.9 g/dL (12.2-16.2); Lymphocytes # (auto) 1.9 10 ^3/uL (0.4-5.4); Lymphocytes % (auto) 29.4 % (10.0-50.0); Mean Corpuscular Hemoglobin 30.9 pg (28.0-32.0); Mean Corpuscular Hgb Conc. 32.3 g/dL (32.0-36.0); Mean Corpuscular Volume 95.6 fL (80.0-100.0); Monocytes # (auto) 0.4 10 ^3/uL (0-1.3); Monocytes % (auto) 5.5 % (0.0-12.0); Neutrophils # (auto) 4.1 10 ^3/uL (1.6-8.6); Neutrophils % (auto) 63.5 % (37.0-80.0); Red Blood Cells 3.53 10^6/uL (4.0-5.20); Red Cell Distribution Width 14.5 % (11.8-14.3); White Blood Cell 6.4 10^3/uL (4.4-10.8)
[2022-05-18 08:21] LABS: Albumin 3.7 g/dL (3.4-5.0); Potassium 4.6 mmol/L (3.5-5.1)
[2022-05-18 08:26] LABS: BUN/Creatinine Ratio 15.5; Bilirubin, Total 0.2 mg/dL (0.2-1.0); CRP High Sensitivity 0.12 mg/dL (< 0.3); Total Protein 6.7 g/dL (6.4-8.2)
== END | disposition home or self-care (01) ==
LOC: LAB 07:22
PROVIDERS: ATTEND Internal Medicine Rheumatology
DX: I10 Essential (primary) hypertension (principal); E03.9 Hypothyroidism, unspecified; E55.9 Vitamin D deficiency, unspecified; M81.0 Age-related osteoporosis without current pathological fracture; M06.9 Rheumatoid arthritis, unspecified
CPT/HCPCS: 36415; 80053; 82306; 84439; 84443; 85025; 85652; 86141

== ENCOUNTER → 2022-06-19 | Outpatient (CLI) | payer OTHER ==
[2022-06-19 13:57] LABS: Urine Bacteria NONE SEEN /hpf (None Seen); Urine Blood Negative /uL (Negative); Urine WBC <1 /hpf (0 - 5)
== END | disposition home or self-care (01) ==
LOC: LAB 13:22
PROVIDERS: ATTEND Internal Medicine Gastroenterology
DX: N39.0 Urinary tract infection, site not specified (principal)
CPT/HCPCS: 81001; 87086

== ENCOUNTER → 2022-07-20 | Outpatient (CLI) | payer OTHER | END | disposition home or self-care (01) | LOC: LAB 10:23 | PROVIDERS: ATTEND Family Medicine | DX: L57.0 Actinic keratosis (principal) | CPT/HCPCS: 88302 ==

== ENCOUNTER → 2022-08-22 | Day surgery (SDC) | payer OTHER ==
[2022-08-20 11:29] LABS: Basophils # (auto) 0 10 ^3/uL (0-0.2); Basophils % (auto) 0.4 % (0.0-2.0); Eosinophils # (auto) 0.1 10 ^3/uL (0-0.8); Eosinophils % (auto) 0.5 % (0.0-7.0); Hematocrit 36.1 % (36.0-46.0); Hemoglobin 11.7 g/dL (12.2-16.2); Lymphocytes # (auto) 2.1 10 ^3/uL (0.4-5.4); Lymphocytes % (auto) 20.7 % (10.0-50.0); Mean Corpuscular Hemoglobin 32.2 pg (28.0-32.0); Mean Corpuscular Hgb Conc. 32.3 g/dL (32.0-36.0); Mean Corpuscular Volume 99.7 fL (80.0-100.0); Monocytes # (auto) 0.5 10 ^3/uL (0-1.3); Neutrophils # (auto) 7.4 10 ^3/uL (1.6-8.6); Neutrophils % (auto) 73.4 % (37.0-80.0); Red Blood Cells 3.62 10^6/uL (4.0-5.20); White Blood Cell 10.1 10^3/uL (4.4-10.8)
[2022-08-20 11:50] LABS: INR 0.97 (0.9-1.15); Partial Thromboplastin Time 26.5 sec (24.6-33.4)
[2022-08-20 12:36] LABS: Albumin 3.9 g/dL (3.4-5.0); BUN/Creatinine Ratio 14.3; Calcium 10.3 mg/dL (8.5-10.1)
[2022-08-20 12:38] LABS: Bilirubin, Total 0.3 mg/dL (0.2-1.0); Total Protein 7.2 g/dL (6.4-8.2)
[~2022-08-22] VITALS: Ht 170.2 cm; Wt 93.0 kg
[~2022-08-22] MED LIST changes: -OMEP20TA PO; +OMEP20TA85 PO; +PRE1T PO; +SODIUM CHLORIDE LOCK 10 ML ONE
[2022-08-22] MEDS: MIDAZOLAM HCL 5 MG/ML-1ML VIAL ONE ×2 (13:47→13:54)
[2022-08-22] MEDS: fentaNYL CITRATE 100 MCG/2 ML VL ONE ×3 (13:47→13:58)
[2022-08-22] MEDS: diphenhdrAMINE HCL 50 MG/1 ML VL ONE ×2 (13:50→13:54)
[2022-08-22 14:45] VITALS: BP 131/60
== END | disposition home or self-care (01) ==
LOC: GI 12:59
PROVIDERS: ATTEND Internal Medicine Gastroenterology
DX: R19.5 Other fecal abnormalities (principal); K64.0 First degree hemorrhoids; K57.30 Diverticulosis of large intestine without perforation or abscess without bleeding; I10 Essential (primary) hypertension; E78.5 Hyperlipidemia, unspecified; E03.9 Hypothyroidism, unspecified; M06.8A Other specified rheumatoid arthritis, other specified site; Z79.899 Other long term (current) drug therapy; Z98.890 Other specified postprocedural states; Z20.822 Contact with and (suspected) exposure to COVID-19
CPT/HCPCS: 36415; 45378; 80053; 85025; 85610; 85730; J1200; J2250; J3010; J7030; U0003; 99152

== ENCOUNTER → 2023-01-29 | Outpatient (CLI) | payer OTHER ==
[~2023-01-29] MED LIST changes: -SODIUM CHLORIDE LOCK 10 ML ONE
[2023-01-29 11:52] LABS: Basophils # (auto) 0 10 ^3/uL (0-0.2); Basophils % (auto) 0.6 % (0.0-2.0); Eosinophils # (auto) 0.1 10 ^3/uL (0-0.8); Eosinophils % (auto) 0.8 % (0.0-7.0); Hematocrit 35.8 % (36.0-46.0); Hemoglobin 11.8 g/dL (12.2-16.2); Lymphocytes # (auto) 2.3 10 ^3/uL (0.4-5.4); Lymphocytes % (auto) 36.6 % (10.0-50.0); Mean Corpuscular Hemoglobin 32.1 pg (28.0-32.0); Mean Corpuscular Hgb Conc. 33.1 g/dL (32.0-36.0); Monocytes # (auto) 0.4 10 ^3/uL (0-1.3); Monocytes % (auto) 5.5 % (0.0-12.0); Neutrophils # (auto) 3.6 10 ^3/uL (1.6-8.6); Neutrophils % (auto) 56.5 % (37.0-80.0); Red Blood Cells 3.69 10^6/uL (4.0-5.20); Red Cell Distribution Width 14.8 % (11.8-14.3); White Blood Cell 6.3 10^3/uL (4.4-10.8)
[2023-01-29 12:43] LABS: Ferritin 95.2 ng/mL (10-322)
[2023-01-29 12:44] LABS: Folate (Folic Acid) > 24.00 ng/mL (5.38-24)
[2023-01-29 12:45] LABS: Calcium 10.3 mg/dL (8.5-10.1); Potassium 4.3 mmol/L (3.5-5.1)
[2023-01-29 12:48] LABS: Albumin 3.9 g/dL (3.4-5.0); BUN/Creatinine Ratio 20.2 (10.0-20.0)
[2023-01-29 12:51] LABS: Bilirubin, Total 0.5 mg/dL (0.2-1.0); Total Protein 7.7 g/dL (6.4-8.2)
[2023-01-29 14:21] LABS: % Iron Saturation 29.1 % (15-50)
== END | disposition home or self-care (01) ==
LOC: LAB 11:34
PROVIDERS: ATTEND Internal Medicine Gastroenterology
DX: D64.9 Anemia, unspecified (principal); R94.5 Abnormal results of liver function studies
CPT/HCPCS: 36415; 80053; 82607; 82728; 82746; 83540; 83550; 85025; 86038; 86803; 87340

== ENCOUNTER → 2023-10-30 | Outpatient (CLI) | payer OTHER ==
[~2023-10-30] MED LIST changes: -LOSA-69 PO; +LOSA50TA46 PO; +SULF500T57 PO; -SULF500T8 PO
[2023-10-30 11:10] LABS: Basophils # (auto) 0 10 ^3/uL (0-0.2); Basophils % (auto) 0.5 % (0.0-2.0); Eosinophils # (auto) 0.1 10 ^3/uL (0-0.8); Eosinophils % (auto) 0.9 % (0.0-7.0); Hematocrit 38.9 % (36.0-46.0); Hemoglobin 12.8 g/dL (12.2-16.2); Lymphocytes # (auto) 2.8 10 ^3/uL (0.4-5.4); Lymphocytes % (auto) 42.6 % (10.0-50.0); Mean Corpuscular Hemoglobin 31.9 pg (28.0-32.0); Mean Corpuscular Hgb Conc. 32.8 g/dL (32.0-36.0); Mean Corpuscular Volume 97.2 fL (80.0-100.0); Monocytes # (auto) 0.5 10 ^3/uL (0-1.3); Monocytes % (auto) 7.1 % (0.0-12.0); Neutrophils # (auto) 3.2 10 ^3/uL (1.6-8.6); Neutrophils % (auto) 48.9 % (37.0-80.0); Nucleated Red Blood Cells % 0.1 %; Red Cell Distribution Width 14.5 % (11.8-14.3); White Blood Cell 6.6 10^3/uL (4.4-10.8)
[2023-10-30 11:37] LABS: Alanine Aminotransferase 22 U/L (7-40); Albumin 4.7 g/dL (3.2-4.8); Alkaline Phosphatase 72 U/L (46-116); Anion Gap 5 (5-15); Aspartate Aminotransferase 25 U/L (13-40); Blood Urea Nitrogen 14 mg/dL (9-23); CRP High Sensitivity 0.08 mg/dL (<1.0); Calcium 10.7 mg/dL (8.5-10.1); Carbon Dioxide 27 mmol/L (20-30); Chloride 109 mmol/L (98-107); Cholesterol 157 mg/dL (< 200); Glucose 97 mg/dL (74-106); HDL Cholesterol 65 mg/dL (40-59); LDL Cholesterol 78 mg/dL (< 100); Sodium 141 mmol/L (136-145); Triglycerides 113 mg/dL (< 150)
[2023-10-30 11:38] LABS: Bilirubin, Total 0.5 mg/dL (0.2-1.0); Total Protein 7.4 g/dL (5.7-8.2)
[2023-10-30 11:39] LABS: Free T4 (Free Thyroxine) 1.27 ng/dL (0.89-1.76)
[2023-10-30 12:24] LABS: Erythrocyte Sedimentation Rate 8 mm/hr (0-20)
== END | disposition home or self-care (01) ==
LOC: LAB 10:42
PROVIDERS: ATTEND Internal Medicine
DX: I10 Essential (primary) hypertension (principal); E03.9 Hypothyroidism, unspecified; E53.8 Deficiency of other specified B group vitamins; E55.9 Vitamin D deficiency, unspecified
CPT/HCPCS: 36415; 80053; 80061; 82306; 82607; 83036; 84439; 84443; 85025; 85652; 86141

== ENCOUNTER → 2024-02-19 | Outpatient (CLI) | payer OTHER ==
[~2024-02-19] MED LIST changes: +LOSA-534 PO; -LOSA50TA46 PO
[2024-02-19 09:19] LABS: Basophils # (auto) 0.1 10 ^3/uL (0-0.2); Basophils % (auto) 0.6 % (0.0-2.0); Eosinophils # (auto) 0.2 10 ^3/uL (0-0.8); Eosinophils % (auto) 1.9 % (0.0-7.0); Hematocrit 37.7 % (36.0-46.0); Hemoglobin 12.3 g/dL (12.2-16.2); Lymphocytes % (auto) 35.7 % (10.0-50.0); Mean Corpuscular Hemoglobin 30.9 pg (28.0-32.0); Mean Corpuscular Hgb Conc. 32.7 g/dL (32.0-36.0); Mean Corpuscular Volume 94.5 fL (80.0-100.0); Monocytes # (auto) 0.6 10 ^3/uL (0-1.3); Monocytes % (auto) 7.2 % (0.0-12.0); Neutrophils # (auto) 4.6 10 ^3/uL (1.6-8.6); Neutrophils % (auto) 54.6 % (37.0-80.0); Red Blood Cells 3.99 10^6/uL (4.0-5.20); Red Cell Distribution Width 14.1 % (11.8-14.3); White Blood Cell 8.4 10^3/uL (4.4-10.8)
[2024-02-19 09:56] LABS: Erythrocyte Sedimentation Rate 13 mm/hr (0-20)
[2024-02-19 10:05] LABS: Alanine Aminotransferase 18 U/L (7-40); Albumin 3.9 g/dL (3.2-4.8); Alkaline Phosphatase 86 U/L (46-116); Anion Gap 5 (5-15); Aspartate Aminotransferase 18 U/L (13-40); BUN/Creatinine Ratio 15.7 (10.0-20.0); Blood Urea Nitrogen 16 mg/dL (9-23); CRP High Sensitivity 0.31 mg/dL (<1.0); Carbon Dioxide 26 mmol/L (20-30); Chloride 107 mmol/L (98-107); Glucose 99 mg/dL (74-106); Potassium 4.3 mmol/L (3.5-5.1); Sodium 138 mmol/L (136-145)
[2024-02-19 10:06] LABS: Bilirubin, Total 0.4 mg/dL (0.2-1.0); Total Protein 7.2 g/dL (5.7-8.2)
== END | disposition home or self-care (01) ==
LOC: LAB 09:03
PROVIDERS: ATTEND Internal Medicine Rheumatology
DX: M06.9 Rheumatoid arthritis, unspecified (principal); Z79.899 Other long term (current) drug therapy
CPT/HCPCS: 36415; 80053; 85025; 85652; 86141

== ENCOUNTER → 2024-07-01 | Outpatient (CLI) | payer OTHER ==
[~2024-07-01] VITALS: Ht 170.2 cm; Wt 97.1 kg
[2024-07-01] MEDS: ADENOSINE 82 MG in GIVE UN-DILUTED 0 ML IV ONE (11:34)
== END | disposition home or self-care (01) ==
LOC: XYW 10:25
PROVIDERS: ATTEND Student in an Organized Health Care Education/Training Program
DX: I25.9 Chronic ischemic heart disease, unspecified (principal); R07.89 Other chest pain; E78.5 Hyperlipidemia, unspecified; I25.10 Atherosclerotic heart disease of native coronary artery without angina pectoris
CPT/HCPCS: 78452; A9500; J0153

== ENCOUNTER 2024-07-29 07:36 | Day surgery (SDC) | payer OTHER ==
[2024-07-27 14:12] LABS: Basophils # (auto) 0.1 10 ^3/uL (0-0.2); Basophils % (auto) 0.8 % (0.0-2.0); Eosinophils # (auto) 0.1 10 ^3/uL (0-0.8); Eosinophils % (auto) 1.5 % (0.0-7.0); Hematocrit 37.3 % (36.0-46.0); Hemoglobin 12.7 g/dL (12.2-16.2); Lymphocytes # (auto) 3.7 10 ^3/uL (0.4-5.4); Lymphocytes % (auto) 42.2 % (10.0-50.0); Mean Corpuscular Volume 94.3 fL (80.0-100.0); Monocytes # (auto) 0.6 10 ^3/uL (0-1.3); Monocytes % (auto) 6.8 % (0.0-12.0); Neutrophils # (auto) 4.3 10 ^3/uL (1.6-8.6); Neutrophils % (auto) 48.7 % (37.0-80.0); Nucleated Red Blood Cells % 0.2 %; Platelet Count (auto) 275 10^3/uL (140-450); Red Blood Cells 3.95 10^6/uL (4.0-5.20); Red Cell Distribution Width 14.4 % (11.8-14.3); White Blood Cell 8.8 10^3/uL (4.4-10.8)
[2024-07-27 14:33] LABS: INR 1.03 (0.9-1.15); Partial Thromboplastin Time 27.2 SEC (24.5-34.5); Prothrombin Time 10.9 sec (9.3-11.8)
[2024-07-27 14:52] LABS: Alanine Aminotransferase 15 U/L (7-40); Albumin 4.7 g/dL (3.2-4.8); Alkaline Phosphatase 95 U/L (46-116); Anion Gap 6 (5-15); Aspartate Aminotransferase 18 U/L (13-40); BUN/Creatinine Ratio 16.7 (10.0-20.0); Bilirubin, Total 0.5 mg/dL (0.2-1.0); Blood Urea Nitrogen 18 mg/dL (9-23); Calcium 11.6 mg/dL (8.7-10.4); Carbon Dioxide 26 mmol/L (20-31); Chloride 107 mmol/L (98-107); Glucose 103 mg/dL (74-106); Sodium 139 mmol/L (136-145)
[~2024-07-29] VITALS: Ht 170.2 cm; Wt 98.0 kg
[2024-07-29] VITALS (7 sets, daily range): BP systolic 111–125; BP diastolic 53–64; PULSE 69–72; RESP 12–19; O2SAT 90–97
--- NOTE | 2024-07-29 10:09 | DVHOP2 ---
Operative Report - 2 Report Details Date: 07/29/24 Preop Diagnosis: CAD Postop Diagnosis: Normal coronaries Surgeon: Catina Lovett MD Anesthesiologist: Conscious sedation Anesthesia: Mac, Local Consent: The patient was informed of the risks and benefits of the procedure. These include but are not limited to complications of anesthesia, postoperative infection, incomplete relief of symptoms, recurrence of symptoms, damage to blood vessels, nerves and tendons, deep venous thrombosis, pulmonary embolism and possible need for repeat surgery in the future. Complications: No complications Estimated Blood Loss: 5 cc Findings: Normal coronaries Indications for Surgery: Chest pain. Abnormal stress test. Name of Procedure Performed Left heart catheterization bilateral cine coronary angiography left ventriculography. Procedure Details Procedure Details: Procedure: Prior local anesthesia with 2% lidocaine to the right wrist and full informed consent obtained under ultrasound guidance we found the radial RV to be very small however patent. We accessed the ulnar artery we were able to place a six [place] Alexander catheters cannulating both are and left coronary ostium and ventriculography without complications Hemodynamics aortic blood pressure was 130/70 and diastolic pressure was eight without gradient across the aortic valve on pullback. Coronary anatomy: RCA is a large vessel it is normal in its proximal mid and distal segments. The PDA and the posterolateral branches are normal. The left main is large and normal. Left anterior descending has a mild 20-30% proximal to mid stenosis. The mid and distal segments are otherwise free of significant disease. The diagonals are normal. The circumflex is a large vessel with two marginal sheath significant disease. Ventriculography in the [place] projection shows an EF of 60%. Impression: Normal left ventricular end-diastolic pressure at rest. Normal ejection fraction. No significant CAD. Recommendations: Medical therapy is warranted. Continue with risk factor modification. End of dictation Condition Fair Disposition Home Date of Service: Jul 29, 2024 Billing Provider: CATINA LVOETT Sr., MD Cardiology Common Codes: [id number] INP/OBS CARE (High) CATINA LOVETT Sr., MD Jul 29, 2024 10:09
[2024-07-29] MEDS ORDERED: HEPARIN SODIUM (PORCINE) 5000 UNITS/ML 1ML VIAL ONE (10:10)
[2024-07-29] MEDS ORDERED: ANGIOMAX 250 MG VIAL IV ONE (10:10)
[2024-07-29] MEDS ORDERED: MIDAZOLAM HCL 2MG/2ML 2ml VIAL (1mg/ml) ONE (10:10)
[2024-07-29] MEDS ORDERED: NITROGLYCERIN 50MG/250ML 250 ML IV ONE (10:10)
[2024-07-29] MEDS ORDERED: VERAPAMIL 2.5MG/ML INJ 2ML VIAL IV ONE (10:10)
[2024-07-29] MEDS ORDERED: LIDOCAINE 2%HCL (LOCAL ANESTH.) INJ 20ML MDV ONE (10:10)
[2024-07-29] MEDS ORDERED: fentaNYL CITRATE 100 MCG/2 ML VL ONE (10:10)
[2024-07-29] MEDS ORDERED: SODIUM CHL 0.9% 0 ML ONE (10:11)
[2024-07-29] MEDS ORDERED: IODIXANOL 320MG/ML 100ML BTL IV ONE (11:00)
== END 2024-07-29 12:20 | disposition home or self-care (01) ==
LOC: CATH 07:36
PROVIDERS: ATTEND Internal Medicine
DX: I25.10 Atherosclerotic heart disease of native coronary artery without angina pectoris (principal); R07.9 Chest pain, unspecified
CPT/HCPCS: 36415; 80053; 85025; 85610; 85730; 93458; C1769; C1887; C1894; J1644; J2250; J3010; J7030; Q9967; 99152; 99153

== ENCOUNTER → 2024-10-01 | Outpatient (CLI) | payer OTHER ==
[2024-10-01 11:11] LABS: Basophils # (auto) 0 10 ^3/uL (0-0.2); Basophils % (auto) 0.6 % (0.0-2.0); Eosinophils # (auto) 0.1 10 ^3/uL (0-0.8); Eosinophils % (auto) 1.8 % (0.0-7.0); Hematocrit 39.1 % (36.0-46.0); Hemoglobin 12.9 g/dL (12.2-16.2); Lymphocytes # (auto) 2.4 10 ^3/uL (0.4-5.4); Lymphocytes % (auto) 43.4 % (10.0-50.0); Mean Corpuscular Hgb Conc. 32.9 g/dL (32.0-36.0); Mean Corpuscular Volume 94.2 fL (80.0-100.0); Monocytes # (auto) 0.3 10 ^3/uL (0-1.3); Monocytes % (auto) 6.2 % (0.0-12.0); Neutrophils # (auto) 2.7 10 ^3/uL (1.6-8.6); Platelet Count (auto) 243 10^3/uL (140-450); Red Blood Cells 4.15 10^6/uL (4.0-5.20); Red Cell Distribution Width 15.1 % (11.8-14.3); White Blood Cell 5.6 10^3/uL (4.4-10.8)
[2024-10-01 11:29] LABS: Urine Bacteria FEW /hpf (None Seen); Urine Blood TRACE /uL (Negative); Urine Clarity Clear (Clear); Urine Color Yellow (Yellow); Urine Protein, UAD TRACE (Negative); Urine Specific Gravity 1.017 (1.001-1.035); Urine Squamous Epithelial Cell FEW /hpf (<5); Urine Urobilinogen Normal (Negative); Urine WBC 10 /hpf (0 - 5); Urine pH 5.5 (5.0-9.0)
[2024-10-01 11:37] LABS: Alanine Aminotransferase 16 U/L (7-40); Albumin 4.6 g/dL (3.2-4.8); Alkaline Phosphatase 91 U/L (46-116); Anion Gap 5 (5-15); Aspartate Aminotransferase 20 U/L (13-40); BUN/Creatinine Ratio 12.3 (10.0-20.0); Blood Urea Nitrogen 13 mg/dL (9-23); Carbon Dioxide 25 mmol/L (20-31); Cholesterol 171 mg/dL (< 200); Glucose 99 mg/dL (74-106); LDL Cholesterol 98 mg/dL (< 100); Potassium 4.1 mmol/L (3.5-5.1); Sodium 140 mmol/L (136-145); Triglycerides 126 mg/dL (< 150)
[2024-10-01 11:38] LABS: Bilirubin, Total 0.5 mg/dL (0.2-1.0); Total Protein 7.6 g/dL (5.7-8.2)
[2024-10-01 11:46] LABS: Calcium 11.1 mg/dL (8.7-10.4); Chloride 110 mmol/L (98-107); HDL Cholesterol 62 mg/dL (40-59)
[2024-10-01 12:33] LABS: Erythrocyte Sedimentation Rate 14 mm/hr (0-20)
== END | disposition home or self-care (01) ==
LOC: LAB 10:35
PROVIDERS: ATTEND Internal Medicine
DX: I73.9 Peripheral vascular disease, unspecified (principal); I70.0 Atherosclerosis of aorta
CPT/HCPCS: 36415; 80053; 80061; 81001; 82306; 83036; 84403; 84443; 85025; 85652; 86141

== ENCOUNTER → 2025-02-08 | Outpatient (CLI) | payer OTHER ==
[2025-02-08 11:48] LABS: Basophils # (auto) 0 10 ^3/uL (0-0.2); Basophils % (auto) 0.5 % (0.0-2.0); Eosinophils # (auto) 0.1 10 ^3/uL (0-0.8); Eosinophils % (auto) 2.1 % (0.0-7.0); Hematocrit 38.4 % (36.0-46.0); Hemoglobin 12.8 g/dL (12.2-16.2); Lymphocytes # (auto) 3.1 10 ^3/uL (0.4-5.4); Lymphocytes % (auto) 43.7 % (10.0-50.0); Mean Corpuscular Hemoglobin 31.1 pg (28.0-32.0); Mean Corpuscular Hgb Conc. 33.4 g/dL (32.0-36.0); Mean Corpuscular Volume 93.3 fL (80.0-100.0); Monocytes # (auto) 0.5 10 ^3/uL (0-1.3); Neutrophils # (auto) 3.3 10 ^3/uL (1.6-8.6); Neutrophils % (auto) 46.7 % (37.0-80.0); Nucleated Red Blood Cells % 0.1 %; Platelet Count (auto) 238 10^3/uL (140-450); Red Blood Cells 4.12 10^6/uL (4.0-5.20); Red Cell Distribution Width 14.7 % (11.8-14.3)
[2025-02-08 12:05] LABS: Alanine Aminotransferase 14 U/L (7-40); Albumin 4.6 g/dL (3.2-4.8); Alkaline Phosphatase 79 U/L (46-116); Anion Gap 8 (5-15); Aspartate Aminotransferase 14 U/L (13-40); BUN/Creatinine Ratio 17.6 (10.0-20.0); Bilirubin, Total 0.5 mg/dL (0.2-1.0); Blood Urea Nitrogen 19 mg/dL (9-23); CRP High Sensitivity 0.16 mg/dL (<1.0); Carbon Dioxide 25 mmol/L (20-31); Glucose 103 mg/dL (74-106); Potassium 4.1 mmol/L (3.5-5.1); Sodium 141 mmol/L (136-145); Total Protein 7.4 g/dL (5.7-8.2)
[2025-02-08 12:06] LABS: Chloride 108 mmol/L (98-107)
[2025-02-08 12:47] LABS: Erythrocyte Sedimentation Rate 12 mm/hr (0-20)
== END | disposition home or self-care (01) ==
LOC: LAB 11:16
PROVIDERS: ATTEND Internal Medicine Rheumatology
DX: M06.09 Rheumatoid arthritis without rheumatoid factor, multiple sites (principal); Z79.899 Other long term (current) drug therapy
CPT/HCPCS: 36415; 80053; 82306; 85025; 85652; 86141

== ENCOUNTER 2025-06-07 08:10 | Outpatient (CLI) | payer OTHER ==
[2025-06-07 09:15] LABS: Hematocrit 35.9 % (36.0-46.0); Hemoglobin 12.1 g/dL (12.2-16.2); Mean Corpuscular Hemoglobin 31.6 pg (28.0-32.0); Mean Corpuscular Volume 94.0 fL (80.0-100.0); Nucleated Red Blood Cells % 0.1 %
[2025-06-07 09:26] LABS: Urine Protein, UAD Negative (Negative)
[2025-06-07 09:37] LABS: Alanine Aminotransferase 17 U/L (7-40); Alkaline Phosphatase 63 U/L (46-116); Anion Gap 10 (5-15); BUN/Creatinine Ratio 9.0 (10.0-20.0); Blood Urea Nitrogen 9 mg/dL (9-23); Calcium 10.3 mg/dL (8.7-10.4); Carbon Dioxide 24 mmol/L (20-31); Glucose 90 mg/dL (74-106); Potassium 3.7 mmol/L (3.5-5.1); Sodium 143 mmol/L (136-145); Total Protein 7.1 g/dL (5.7-8.2); Triglycerides 113 mg/dL (< 150)
[2025-06-07 09:38] LABS: Albumin 4.3 g/dL (3.2-4.8); Cholesterol 137 mg/dL (< 200); HDL Cholesterol 51 mg/dL (40-59)
[2025-06-07 09:39] LABS: Bilirubin, Total 0.6 mg/dL (0.2-1.0); Chloride 109 mmol/L (98-107)
== END 2025-06-07 17:00 | disposition home or self-care (01) ==
LOC: LAB 08:10
PROVIDERS: ATTEND Internal Medicine
DX: I10 Essential (primary) hypertension (principal); Z12.11 Encounter for screening for malignant neoplasm of colon
CPT/HCPCS: 36415; 80053; 80061; 81001; 82274; 82306; 83036; 84443; 85025